=== PATIENT | male | born 1980 | race Caucasian/White ===

== ENCOUNTER 2017-03-31 05:11 | Inpatient (IN) | payer OTHER ==
[~2017-03-31] VITALS: Ht 177.8 cm; Wt 96.2 kg
[~2017-03-31 05:11] MED LIST: CIPRO500 MG OR; FLAGYL500 MG OR; NO MEDS; PERCOCET 5/325M1 TAB OR; REGLAN10 MG OR
[2017-03-31 06:33] LABS: ALBUMIN 4.9 g/dL (3.2-5.0); ALKALINE PHOSPHATASE 66 u/l (38-126); ANION GAP 16 (6-22 (CALC)); BILIRUBIN, TOTAL 1.9 mg/dL (0.0-1.4); BUN 9 mg/dL (9-20); BUN/CREATININE RATIO 10 (12-20 (CALC)); CALCIUM 9.6 mg/dL (8.4-10.2); CARBON DIOXIDE 28 mmol/l (22-30); CHLORIDE 104 mmol/l (95-108); CREATININE 0.9 mg/dL (0.7-1.3); GFR > 60 ML/MIN (>=60 (CALC)); GFR FOR AFR.AMER. > 60 ML/MIN (>=60 (CALC)); GLUCOSE 96 mg/dL (75-110); SGOT/AST 22 u/l (17-59); SGPT/ALT 26 u/l (21-72); SODIUM 143 mmol/l (137-146); TOTAL PROTEIN 7.7 g/dL (6.3-8.2)
[2017-03-31 06:43] LABS: HEMATOCRIT 43.4 % (39.0-50.0); HEMOGLOBIN 16.7 g/dl (14.0-18.0); LYMPH% 17 % (15-41); MEAN CELL VOLUME 85.1 fL CALC (80.0-100.0); MEAN CORPUSCULAR HGB 32.7 pG CALC (26.0-32.0); MEAN CORPUSCULAR HGB CONC 38.5 g/L CALC (32.0-36.0); MONO% 9 % (2-13); NEUT% 74 % (42-76); PLATELET COUNT 194 thou/uL (130-400); RED CELL DISTRI WIDTH 12.1 % (11.5-15.5)
[2017-03-31 08:03] VITALS: BP 126/83
[2017-03-31 16:00] VITALS: BP 131/72
[2017-03-31 20:00] VITALS: BP 138/75
[2017-04-01 03:30] VITALS: BP 124/78
[2017-04-01 05:52] LABS: HEMATOCRIT 40.3 % (39.0-50.0); HEMOGLOBIN 14.2 g/dl (14.0-18.0); IMMATURE GRANULOCYTES 0.4 % (0.0-1.0); MEAN CELL VOLUME 86.9 fL CALC (80.0-100.0); MEAN CORPUSCULAR HGB 30.6 pG CALC (26.0-32.0); MEAN CORPUSCULAR HGB CONC 35.2 g/L CALC (32.0-36.0); NEUT# 7.55 thou/uL (1.82-7.42); RED BLOOD COUNT 4.64 mill/uL (4.70-6.10)
[2017-04-01 06:10] LABS: ANION GAP 13 (6-22 (CALC)); BUN 9 mg/dL (9-20); BUN/CREATININE RATIO 11 (12-20 (CALC)); CALCIUM 8.7 mg/dL (8.4-10.2); CARBON DIOXIDE 28 mmol/l (22-30); CHLORIDE 104 mmol/l (95-108); CREATININE 0.8 mg/dL (0.7-1.3); GFR > 60 ML/MIN (>=60 (CALC)); GFR FOR AFR.AMER. > 60 ML/MIN (>=60 (CALC)); GLUCOSE 84 mg/dL (75-110); POTASSIUM 3.8 mmol/l (3.5-5.1); SODIUM 141 mmol/l (137-146)
[2017-04-01 08:56] VITALS: BP 118/76
[2017-04-01 15:10] VITALS: BP 137/74
[2017-04-01] MEDS ORDERED: AUGMENTIN875TAB PO (17:28)
[2017-04-01] MEDS ORDERED: DOXYCYCL HYC100 MG PO (17:28)
== END 2017-04-01 19:50 | disposition home or self-care (01) | DRG 603 ==
LOC: ENPENDDIS → ED 05:11 → ED-I 07:30 → ED 07:44 → MS2 07:45
PROVIDERS: Emergency Medicine; Internal Medicine; ADMIT Internal Medicine; ATTEND Internal Medicine
DX: L03.114 Cellulitis of left upper limb (principal); Z86.14 Personal history of Methicillin resistant Staphylococcus aureus infection

== ENCOUNTER 2018-08-13 07:44 | Emergency (ER) | payer SELFPAY ==
[~2018-08-13] VITALS: Ht 177.8 cm; Wt 97.7 kg
[~2018-08-13 07:44] MED LIST changes: +AUGMENTIN875TAB PO; +DOXYCYCL HYC100 MG PO
[2018-08-13] MEDS ORDERED: MEDDOSEPAK PO (08:05)
[2018-08-13 08:13] VITALS: BP 122/72
== END 2018-08-13 08:20 | disposition home or self-care (01) | DRG 607 ==
LOC: ED 07:44
DX: L25.5 Unspecified contact dermatitis due to plants, except food (principal)

== ENCOUNTER → 2018-12-16 | Outpatient (REF) | payer OTHER ==
[~2018-12-16] MED LIST changes: +MEDDOSEPAK PO
== END | disposition home or self-care (01) | DRG 948 ==
LOC: LAB 08:05
PROVIDERS: ATTEND Family Medicine
DX: R53.83 Other fatigue (principal); T80.69XA Other serum reaction due to other serum, initial encounter; Z13.220 Encounter for screening for lipoid disorders; Z13.9 Encounter for screening, unspecified

== ENCOUNTER → 2018-12-20 | Outpatient (REF) | payer OTHER | END | disposition home or self-care (01) | DRG 948 | LOC: LABSPEC 12:24 | PROVIDERS: ATTEND Family Medicine | DX: R53.83 Other fatigue (principal); T80.69XA Other serum reaction due to other serum, initial encounter; Z13.220 Encounter for screening for lipoid disorders; Z13.9 Encounter for screening, unspecified ==

== ENCOUNTER 2020-05-03 17:55 | Emergency (ER) | payer OTHER ==
[~2020-05-03] VITALS: Ht 177.8 cm; Wt 95.4 kg
[2020-05-03 19:13] LABS: HEMATOCRIT 43.2 % (39.0-50.0); HEMOGLOBIN 15.4 g/dl (14.0-18.0); IMMATURE GRANULOCYTES 0.2 % (0.0-5.0); MEAN CELL VOLUME 85.7 fL CALC (80.0-100.0); MEAN CORPUSCULAR HGB 30.6 pG CALC (26.0-32.0); MEAN CORPUSCULAR HGB CONC 35.6 g/dL CAL (32.0-36.0); NEUT# 5.11 thou/uL (1.82-7.42); RED BLOOD COUNT 5.04 mill/uL (4.70-6.10); RED CELL DISTRI WIDTH 11.8 % (11.5-15.5)
[2020-05-03 19:25] LABS: ALKALINE PHOSPHATASE 73 u/l (38-126); ANION GAP 11 (6-22 (CALC)); BUN 15 mg/dL (9-20); BUN/CREATININE RATIO 19 (12-20 (CALC)); CARBON DIOXIDE 28 mmol/l (22-30); CHLORIDE 101 mmol/l (95-108); CREATININE 0.8 mg/dL (0.7-1.3); GFR > 60 ML/MIN (>=60 (CALC)); GFR FOR AFR.AMER. > 60 ML/MIN (>=60 (CALC)); POTASSIUM 3.7 mmol/l (3.5-5.1); SGOT/AST 28 u/l (17-59); SODIUM 137 mmol/l (137-146); TOTAL PROTEIN 7.7 g/dL (6.3-8.2)
[2020-05-03 20:10] VITALS: BP 132/70
== END 2020-05-03 20:18 | disposition home or self-care (01) | DRG 103 ==
LOC: ED 17:55
PROVIDERS: Family Medicine
DX: R51 Headache (principal)

== ENCOUNTER 2024-12-02 17:14 | Emergency (ER) | payer OTHER ==
[~2024-12-02] VITALS: Ht 177.8 cm; Wt 104.5 kg
[2024-12-02] VITALS (7 sets, daily range): BP systolic 107–121; BP diastolic 71–79
[2024-12-02] MEDS ORDERED: ONDANSETRON HCl 4 MG/2 ML SDV IV ONE (17:20)
[2024-12-02] MEDS ORDERED: HYDROmorphone HCL 2 MG/AMP IV ONE (17:20)
[2024-12-02] MEDS ORDERED: diazePAM 10 MG/2 ML VIAL IV ONE (17:20)
[2024-12-02] MEDS ORDERED: KETOROLAC TROMETHAMINE 30 MG/ML SDV IV ONE (17:20)
[2024-12-02] MEDS ORDERED: NALOXONE HCL 0.4 MG/ML 1ML AMP IV ONE ×2 (17:45)
[2024-12-02] MEDS ORDERED: SODIUM CHLORIDE 0.9% 1,000 ML IV ONE (17:45)
[2024-12-02] MEDS ORDERED: PERCOCET 5/321 COMBO PO (19:25)
[2024-12-02] MEDS ORDERED: PREDNISONE10 MG PO (19:25)
[2024-12-02] MEDS ORDERED: CYCLOBENZAPRINE10 MG PO (19:25)
== END 2024-12-02 19:39 | disposition home or self-care (01) | DRG 563 ==
LOC: ED 17:14
DX: S39.012A Strain of muscle, fascia and tendon of lower back, initial encounter (principal); X50.1XXA Overexertion from prolonged static or awkward postures, initial encounter; Y93.89 Activity, other specified; R06.81 Apnea, not elsewhere classified; Y99.0 Civilian activity done for income or pay
CPT/HCPCS: J1100; J1171; J2405; J3360